=== PATIENT | male | born 1955 | race Caucasian/White ===

== ENCOUNTER 2016-12-11 08:30 | Inpatient (IN) | payer OTHER ==
[2016-12-12 05:15] LABS: HCT 34.7 % (42.0-52.0); HGB 11.9 g/dl (13.2-18.0); MCH 32.2 pg (25.0-31.0); MCHC 34.3 g/dL (32.0-36.0); MCV 93.8 fL (78.0-100.0); MPV 9.5 fL (6.0-9.5); RBC 3.7 M/uL (4.70-6.00); RDW 12.8 % (11.5-14.0); WBC 8.8 K/uL (4.0-10.5)
[2016-12-12 05:51] LABS: CREATININE 0.9 mg/dL (0.7-1.2); POTASSIUM 4.3 mmol/L (3.5-5.1)
[2016-12-13 04:33] LABS: HCT 32.2 % (42.0-52.0); HGB 11.3 g/dl (13.2-18.0); MCH 32.2 pg (25.0-31.0); MCHC 35.1 g/dL (32.0-36.0); MCV 91.7 fL (78.0-100.0); MPV 9.7 fL (6.0-9.5); RBC 3.51 M/uL (4.70-6.00); RDW 12.6 % (11.5-14.0); WBC 7.3 K/uL (4.0-10.5)
[2016-12-13 04:55] LABS: CREATININE 0.9 mg/dL (0.7-1.2)
[2016-12-14 05:06] LABS: HCT 32.7 % (42.0-52.0); HGB 11.3 g/dl (13.2-18.0); MCHC 34.6 g/dL (32.0-36.0); MCV 92.6 fL (78.0-100.0); MPV 9.8 fL (6.0-9.5); RBC 3.53 M/uL (4.70-6.00); RDW 12.7 % (11.5-14.0); WBC 7.7 K/uL (4.0-10.5)
[2016-12-14 05:26] LABS: CREATININE 0.9 mg/dL (0.7-1.2)
[2016-12-14] MEDS ORDERED: ASPIRIN CHEWABL81 MG PO (12:29)
[2016-12-14] MEDS ORDERED: OMEPRAZOLE40 MG PO (12:29)
[2016-12-14] MEDS ORDERED: ATENOLOL25 MG PO (12:29)
[2016-12-14] MEDS ORDERED: FLOMAX0.4 MG PO (12:30)
[2016-12-14] MEDS ORDERED: DILTIAZEM 24HR300 M1 PO (12:30)
[2016-12-14] MEDS ORDERED: METFORMIN HCL500 MG PO (12:30)
[2016-12-14] MEDS ORDERED: RED YEAST RICE600 M1 PO (12:31)
[2016-12-14] MEDS ORDERED: VITAMIN B-121000 MC1 PO ×2 (12:31)
[2016-12-14] MEDS ORDERED: FISH OIL 1,2001 EACH PO (12:31)
[2016-12-14] MEDS ORDERED: ZOFRAN4 MG PO (12:32)
[2016-12-14] MEDS ORDERED: XARELTO10 MG PO (12:32)
[2016-12-14] MEDS ORDERED: BACLOFEN 10MG T10 MG PO (12:34)
[2016-12-14] MEDS ORDERED: PERCOCET 5/3251 TAB PO (12:34)
== END 2016-12-14 14:41 | disposition home health service (06) | DRG 470 ==
LOC: FMS 10:00
PROVIDERS: ADMIT Legal Medicine
PROC: 8E0YXBZ Computer Assisted Procedure of Lower Extremity (ICD-10-PCS; 2016-12-11)
PROC: 0SRC0J9 Replacement of Right Knee Joint with Synthetic Substitute, Cemented, Open Approach (ICD-10-PCS; principal; 2016-12-11 12:00)
DX: M17.11 Unilateral primary osteoarthritis, right knee (principal); I10 Essential (primary) hypertension; E11.9 Type 2 diabetes mellitus without complications; D64.9 Anemia, unspecified; N40.0 Benign prostatic hyperplasia without lower urinary tract symptoms; R39.11 Hesitancy of micturition; Z79.82 Long term (current) use of aspirin; Z22.322 Carrier or suspected carrier of Methicillin resistant Staphylococcus aureus
CPT/HCPCS: 36415; 73560; 80048; 86850; 86900; 86901; 88305; 88311; 94010; 94667; 94668; 94760; 94762; 97110; 97116; 97162; 97166; 97530; 97530-GP; 97535; C1713; C1776; J0131; J0697; J1170; J1885; J2060; J2270; J2405; J2704; J2710; J2795; J3010